=== PATIENT | male | born 1950 | race Caucasian/White ===

== ENCOUNTER 2018-07-27 10:57 | Emergency (ER) | payer MEDICARE, OTHER ==
[~2018-07-27] VITALS: Ht 180.3 cm; Wt 77.1 kg
[~2018-07-27 10:57] MED LIST: (None)20 M1 PO; ALBU4 PO; ALBU90OI INH; AMOCLA875 PO; CLIN300 PO; Duoneb 2.5-0.5 M3 ML INH; Flovent Disku100 MCG IH; HYDACE10B PO; HYDACE5 PO; IBUP400; NAPR500 PO; PENVK500 PO; PROACE100 PO; PROM25 PO; Zithromax250 MG PO
[2018-07-27] MEDS ORDERED: Norco 5-325 Ta1 EACH PO (11:45)
== END 2018-07-27 12:00 | disposition home or self-care (01) ==
LOC: ER 10:57
DX: S22.31XA Fracture of one rib, right side, initial encounter for closed fracture (principal); J44.9 Chronic obstructive pulmonary disease, unspecified; F17.200 Nicotine dependence, unspecified, uncomplicated; Z79.51 Long term (current) use of inhaled steroids; W19.XXXA Unspecified fall, initial encounter
CPT/HCPCS: 71101; 99283-25

== ENCOUNTER 2018-08-27 14:14 | Emergency (ER) | payer MEDICARE, OTHER ==
[~2018-08-27] VITALS: Ht 180.3 cm; Wt 79.4 kg
[~2018-08-27 14:14] MED LIST changes: +Norco 5-325 Ta1 EACH PO
[2018-08-27] MEDS ORDERED: Mobic15 MG PO (14:50)
[2018-08-27] MEDS ORDERED: TIOT18 INH (14:51)
[2018-08-27] MEDS ORDERED: Cheratussin AC118 ML PO (15:12)
[2018-08-27] MEDS ORDERED: LEVO750 PO (15:12)
[2018-08-27] MEDS ORDERED: Sudogest60 MG PO (15:14)
[2018-08-27] MEDS ORDERED: HYDR1TAB94 PO (15:47)
== END 2018-08-27 15:54 | disposition home or self-care (01) ==
LOC: ER 14:14
DX: J44.0 Chronic obstructive pulmonary disease with (acute) lower respiratory infection (principal); J20.9 Acute bronchitis, unspecified; Z79.899 Other long term (current) drug therapy; F17.200 Nicotine dependence, unspecified, uncomplicated
CPT/HCPCS: 71046; 99283-25

== ENCOUNTER 2018-11-05 16:11 | Emergency (ER) | payer MEDICARE, OTHER ==
[~2018-11-05] VITALS: Ht 180.3 cm; Wt 75.3 kg
[~2018-11-05 16:11] MED LIST changes: +Cheratussin AC118 ML PO; +HYDR1TAB94 PO; +LEVO750 PO; +Mobic15 MG PO; +Sudogest60 MG PO; +TIOT18 INH
[2018-11-05] MEDS ORDERED: ATOR40TA PO (17:55)
[2018-11-05] MEDS ORDERED: Cheratussin AC118 ML PO (18:00)
[2018-11-05] MEDS ORDERED: BENZ100A PO (18:00)
== END 2018-11-05 18:07 | disposition home or self-care (01) ==
LOC: ER 16:11
DX: R05 Cough (principal); J44.9 Chronic obstructive pulmonary disease, unspecified; F17.200 Nicotine dependence, unspecified, uncomplicated; Z79.899 Other long term (current) drug therapy
CPT/HCPCS: 71046; 99283-25

== ENCOUNTER 2018-12-02 07:02 | Emergency (ER) | payer MEDICARE, OTHER ==
[~2018-12-02] VITALS: Ht 180.3 cm; Wt 72.6 kg
[~2018-12-02 07:02] MED LIST changes: +ATOR40TA PO; +BENZ100A PO
[2018-12-02 07:59] LABS: BASOPHILS ABSOLUTE AUTO 0.02 K/mm3 (0.00-0.23); BASOPHILS PERCENT AUTO 0 % (0-2); EOSINOPHILS ABSOLUTE AUTO 0.69 K/mm3 (0.00-0.68); EOSINOPHILS PERCENT AUTO 9 % (0-6); Hematocrit 41.5 % (37.0-53.0); Hemoglobin 13.5 g/dL (13.5-17.5); IMMATURE GRAN ABSOLUTE AUTO 0.02 K/mm3 (0.00-0.10); IMMATURE GRAN PERCENT AUTO 0 % (0-1); LYMPHOCYTES ABSOLUTE AUTO 1.56 K/mm3 (0.84-5.20); LYMPHOCYTES PERCENT AUTO 20 % (21-46); MONOCYTES ABSOLUTE AUTO 0.98 K/mm3 (0.16-1.47); MONOCYTES PERCENT AUTO 12 % (4-13); Mean Corpuscular HGB 30.3 pg (26.0-34.0); Mean Corpuscular HGB Conc 32.5 g/dL (31.5-36.5); Mean Corpuscular Volume 93 fL (80-100); Mean Platelet Volume 10.5 fL (9.1-12.4); NEUTROPHILS ABSOLUTE AUTO 4.72 K/mm3 (1.96-9.15); NEUTROPHILS PERCENT AUTO 59 % (41-73); Platelet Count 201 K/mm3 (150-400); RDW Standard Deviation 48.1 fL (35.1-46.3); Red Blood Cell Count 4.46 M/mm3 (4.30-5.90); White Blood Cell Count 7.99 K/mm3 (4.00-11.30)
[2018-12-02 08:14] LABS: Alanine Aminotransfer (ALT/SGP 20 U/L (12-78); Albumin, Blood 3.6 g/dL (3.4-5.0); Albumin/Globulin Ratio 1.1 (0.8-1.8); Alk Phos 100 U/L (50-136); Anion Gap 6 mmol/L (6-16); Aspartate Aminotrans (AST/SGOT 21 U/L (12-37); Bilirubin, Total 0.4 mg/dL (0.1-1.0); Blood Urea Nitrogen 21 mg/dL (8-24); Bun/Creatinine Ratio 22.9 (12.0-20.0); CO2, Blood 28 mmol/L (21-32); Calcium, Blood 9.1 mg/dL (8.5-10.1); Chloride, Blood 108 mmol/L (98-108); Creatinine, Blood 0.92 mg/dL (0.60-1.20); Globulin, Blood 3.3 g/dL (2.2-4.0); Glomerular Filtration Rate >60 (60-); Glucose, Blood 94 mg/dL (70-99); Sodium, Blood 142 mmol/L (136-145); Total Protein, Blood 6.9 g/dL (6.4-8.2); Troponin I <0.015 ng/mL (0.000-0.040)
[2018-12-02 08:56] LABS: Source, Urine Voided
[2018-12-02 09:01] LABS: Bilirubin, Urine Neg (Neg); Blood, Urine Neg (Neg); Glucose Qualitative, Urine Neg (Neg); Ketones, Urine Neg (Neg); Leukocyte Esterase, Urine Neg (Neg); Nitrite, Urine Neg (Neg); Protein, Urine Neg (Neg); Urobilinogen, Urine NORM (Normal)
[2018-12-02 09:03] LABS: Appearance, Urine Clear (Clear); Color, Urine Yellow (P-Yellow)
[2018-12-02] MEDS ORDERED: PRED20 PO (09:09)
[2018-12-02] MEDS ORDERED: Proventil5 MG/1 ML INH (09:09)
== END 2018-12-02 09:25 | disposition home or self-care (01) ==
LOC: ER 07:02
PROVIDERS: Emergency Medicine
DX: J44.1 Chronic obstructive pulmonary disease with (acute) exacerbation (principal); Z79.899 Other long term (current) drug therapy; F17.200 Nicotine dependence, unspecified, uncomplicated
CPT/HCPCS: 36415; 71046; 80053; 81003; 83880; 84484; 85025; 93005; 93010; 94640; 96374; 96375; 99284-25; J1200; J1885; J2765; J2930